=== PATIENT | male | born 1950 | race Caucasian/White ===

== ENCOUNTER 2019-04-27 18:41 | Observation (INO) ==
[2019-04-27 19:20] LABS: ABG Base Excess 2 mEq/L (-2 to 3); ABG HCO3 26 mEq/L (21-27); ABG Oxygen Saturation 97 % (95-98); ABG PCO2 38 mmHg (35-45); ABG PH 7.44 pH Units (7.32-7.45); ABG PO2 86 mmHg (85-104); ABG TCO2 27 mEq/L (20-26)
[2019-04-27 19:47] LABS: Basophils # 0.1 K/mcL (0.0-0.2); Basophils % 0.5 %; Eosinophils # 0.1 K/mcL (0.0-0.6); Eosinophils % 0.7 %; Hematocrit 29.3 % (37.5-50.1); Hemoglobin 9.9 g/dL (12.9-16.9); Immature Granulocytes % 0.5 % (0-4); Lymphocytes # 0.7 K/mcL (0.6-4.6); Lymphocytes % 6.2 %; Mean Corpuscular HGB Conc 33.8 g/dL (31.6-35.5); Mean Corpuscular Hemoglobin 31.3 pg (28.0-33.3); Mean Corpuscular Volume 92.7 fL (83.0-100.0); Mean Platelet Volume 10.2 fL (9.4-12.4); Monocytes # 0.4 K/mcL (0.0-1.3); Monocytes % 3.5 %; Neutrophils # 9.8 K/mcL (1.6-8.9); Platelet Count 209 K/mcL (140-400); Red Blood Count 3.16 M/mcL (4.19-5.50); Red Cell Distribution Width 13.5 % (11.5-14.5); Segmented Neutrophils % 88.6 %; White Blood Count 11.1 K/mcL (4.3-11.1)
[2019-04-27] MEDS ORDERED: Isovue-370 500 ML BOTTLE IVP ONE ×2 (19:53→20:11)
[2019-04-27 20:07] LABS: Albumin 3.6 g/dL (3.5-5.7); Albumin/Globulin Ratio 0.8 (1.1-2.2); Bilirubin,Direct 0.1 mg/dL (0.0-0.2); Bilirubin,Indirect 0.3 mg/dL (0.0-1.0); Bilirubin,Total 0.4 mg/dL (0.3-1.0); Calcium 9.1 mg/dL (8.6-10.3); Globulin 4.3 g/dL (2.4-3.5); Potassium 4.6 mEq/L (3.5-5.1); Total Protein 7.9 g/dL (6.4-8.9)
[2019-04-27 20:10] LABS: Troponin I 0.07 ng/mL (< 0.04)
[2019-04-27] MEDS ORDERED: Aspirin 325 MG TABLET PO ONE (21:01)
[2019-04-27 21:55] LABS: Prothrombin Time 11.6 Seconds (9.4-12.1)
[2019-04-27 21:58] LABS: Activated Partial Thrombo Time 34.7 Seconds (26.0-36.0)
[2019-04-27] MEDS ORDERED: Nicotine 2 MG GUM BC PRN (22:23)
[2019-04-27] MEDS ORDERED: D5% in Water 1,000 ML IVC PRN (22:23)
[2019-04-27] MEDS ORDERED: Ondansetron ODT 4 MG TAB.RAPDIS SL PRN (22:23)
[2019-04-27] MEDS ORDERED: Dextrose Gel 15 GM/37.5 ML TUBE PO PRN ×2 (22:23)
[2019-04-27] MEDS ORDERED: *HR* Dextrose 50 % in Water (Syg) 50 ML SYRINGE IVP PRN (22:23)
[2019-04-27] MEDS ORDERED: Naloxone 0.4 MG/ML INJ IVP PRN (22:23)
[2019-04-27] MEDS: cloNIDine HCl 0.1 MG TABLET PO SCH (22:40)
[2019-04-28 02:56] LABS: Basophils % 0.6 %; Eosinophils % 0.4 %; Hematocrit 26.1 % (37.5-50.1); Hemoglobin 8.6 g/dL (12.9-16.9); Immature Granulocytes % 0.4 % (0-4); Lymphocytes % 13.9 %; Mean Corpuscular Hemoglobin 30.8 pg (28.0-33.3); Mean Corpuscular Volume 93.5 fL (83.0-100.0); Mean Platelet Volume 10.4 fL (9.4-12.4); Monocytes # 0.4 K/mcL (0.0-1.3); Monocytes % 5.8 %; Neutrophils # 5.7 K/mcL (1.6-8.9); Platelet Count 181 K/mcL (140-400); Red Blood Count 2.79 M/mcL (4.19-5.50); Red Cell Distribution Width 13.5 % (11.5-14.5); Segmented Neutrophils % 78.9 %; White Blood Count 7.2 K/mcL (4.3-11.1)
[2019-04-28 02:58] LABS: Estimated Average Glucose 97 mg/dl
[2019-04-28 03:08] LABS: INR 1.1; Prothrombin Time 12.4 Seconds (9.4-12.1)
[2019-04-28 03:17] LABS: Albumin 3.2 g/dL (3.5-5.7); Albumin/Globulin Ratio 0.9 (1.1-2.2); Bilirubin,Total 0.3 mg/dL (0.3-1.0); Calcium 8.6 mg/dL (8.6-10.3); Chol/HDL Ratio 4.2 (0-4.9); Globulin 3.7 g/dL (2.4-3.5); Magnesium 2.1 mg/dL (1.6-2.6); Phosphorous 7.6 mg/dL (2.7-4.5); Potassium 5.2 mEq/L (3.5-5.1); Total Protein 6.9 g/dL (6.4-8.9)
[2019-04-28 03:27] LABS: Thyroid Stimulating Hormone 2.216 mcIU/mL (0.340-5.600)
[2019-04-28] MEDS: *HR* Labetalol 20 MG/4 ML SYRINGE IVP PRN ×2 (03:38→05:03)
[2019-04-28] MEDS: *HR* Heparin 5,000 UNIT/ML VIAL SQ SCH ×3 (06:02→22:24)
[2019-04-28] MEDS ORDERED: Insulin LISPRO 300 UNITS/3 ML VIAL SQ SCH (07:30)
[2019-04-28] MEDS: cloNIDine HCl 0.1 MG TABLET PO SCH ×2 (08:40→19:57)
[2019-04-28] MEDS: amLODIPine 5 MG TABLET PO SCH (08:40)
[2019-04-28] MEDS ORDERED: Nicotine 14 MG PATCH.TD24 TD SCH (09:00)
[2019-04-28] MEDS ORDERED: Furosemide 80 MG in 0.9 % Sodium Chloride 50 ML IVPB ONE (15:25)
[2019-04-28] MEDS ORDERED: Furosemide 80 MG in 0.9 % Sodium Chloride 50 ML IV ONE (15:48)
[2019-04-28 17:18] LABS: Adenovirus Not Detected (Not Detect); Bordetella Pertussis Not Detected (Not Detect); Chlamydophila pneumoniae Not Detected (Not Detect); Coronavirus 229E Not Detected (Not Detect); Coronavirus HKU1 Not Detected (Not Detect); Coronavirus NL63 Not Detected (Not Detect); Coronavirus OC43 Not Detected (Not Detect); Human Metapneumovirus Not Detected (Not Detect); Human Rhinovirus/Enterovirus Not Detected (Not Detect); Influenza A Subtype 2009 H1 Not Detected (Not Detect); Influenza B Not Detected (Not Detect); Mycoplasma pneumoniae Not Detected (Not Detect); Parainfluenza Virus 1 Not Detected (Not Detect); Parainfluenza Virus 2 Not Detected (Not Detect); Parainfluenza Virus 3 Not Detected (Not Detect); Parainfluenza Virus 4 Not Detected (Not Detect); Respiratory Syncytial Virus Not Detected (Not Detect)
[2019-04-28] MEDS: Ipratropium/Albuterol Neb 3 ML IH SCH ×3 (19:36→23:18)
[2019-04-28] MEDS: Budesonide/Formoterol 160/4.5 1 PUFF INH IH SCH (20:10)
[2019-04-29] MEDS: Ipratropium/Albuterol Neb 3 ML IH SCH ×4 (03:31→16:13)
[2019-04-29 05:37] LABS: Basophils # 0.1 K/mcL (0.0-0.2); Basophils % 0.8 %; Eosinophils # 0.2 K/mcL (0.0-0.6); Eosinophils % 3.5 %; Hematocrit 24.1 % (37.5-50.1); Hemoglobin 7.8 g/dL (12.9-16.9); Immature Granulocytes % 0.3 % (0-4); Lymphocytes # 1.4 K/mcL (0.6-4.6); Lymphocytes % 20.9 %; Mean Corpuscular HGB Conc 32.4 g/dL (31.6-35.5); Mean Corpuscular Hemoglobin 30.7 pg (28.0-33.3); Mean Corpuscular Volume 94.9 fL (83.0-100.0); Mean Platelet Volume 10.3 fL (9.4-12.4); Monocytes # 0.5 K/mcL (0.0-1.3); Monocytes % 6.9 %; Neutrophils # 4.4 K/mcL (1.6-8.9); Nucleated Red Blood Cells 0.3 /100 WBC (0); Platelet Count 175 K/mcL (140-400); Red Blood Count 2.54 M/mcL (4.19-5.50); Red Cell Distribution Width 13.9 % (11.5-14.5); Segmented Neutrophils % 67.6 %; White Blood Count 6.5 K/mcL (4.3-11.1)
[2019-04-29] MEDS: *HR* Heparin 5,000 UNIT/ML VIAL SQ SCH ×2 (05:44→13:51)
[2019-04-29 05:51] LABS: % Iron Saturation 52 % (20-55); Calcium 8.1 mg/dL (8.6-10.3); Iron 125 mcg/dL (65-175); Potassium 4.5 mEq/L (3.5-5.1); Transferrin 171 mg/dL (203-362)
[2019-04-29 06:19] LABS: Ferritin 995 ng/mL (20-250)
[2019-04-29 06:25] LABS: Folate 6.5 ng/mL (3.0-16.0)
[2019-04-29] MEDS ORDERED: 0.9 % Sodium Chloride 250 ML IVC PRN (07:57)
[2019-04-29] MEDS ORDERED: *HR* Heparin 10,000 UNIT/10 ML VIAL IV PRN ×2 (07:57)
[2019-04-29] MEDS ORDERED: 0.9 % Sodium Chloride 1,000 ML PRIME SCH (08:00)
[2019-04-29] MEDS ORDERED: Nicotine 21 MG PATCH.TD24 TD SCH (09:00)
[2019-04-29 09:38] LABS: Hepatitis B Surface Antibody 13.71 mIU/mL
[2019-04-29 09:49] LABS: Hepatitis B Surface Antigen Nonreactive (Nonreactive)
[2019-04-29] MEDS: Budesonide/Formoterol 160/4.5 1 PUFF INH IH SCH (11:38)
[2019-04-29] MEDS: cloNIDine HCl 0.1 MG TABLET PO SCH (13:50)
[2019-04-29] MEDS: amLODIPine 5 MG TABLET PO SCH (13:51)
[2019-04-29 15:38] VITALS: BP 127/62
== END 2019-04-29 18:00 | disposition home or self-care (01) ==
LOC: EMEROOARM 18:41 → 2ANU 18:41 → SUATTDRO 21:17 → 2ANU 21:56
PROVIDERS: ADMIT Family Medicine; ATTEND Internal Medicine

== ENCOUNTER 2019-12-09 19:43 | Inpatient (IN) ==
[2019-12-09] MEDS ORDERED: Naloxone 0.4 MG/ML INJ IVP PRN (22:05)
[2019-12-09] MEDS ORDERED: Ondansetron 4 MG/2 ML VIAL IVP PRN (22:05)
[2019-12-09] MEDS ORDERED: *HR* Labetalol 20 MG/4 ML SYRINGE IVP ONE (23:23)
[2019-12-09] MEDS ORDERED: Azithromycin 500 MG in 0.9 % Sodium Chloride 250 ML IVPB SCH (23:45)
[2019-12-09] MEDS ORDERED: Ipratropium/Albuterol Neb 3 ML IH PRN (23:47)
[2019-12-09] MEDS ORDERED: Furosemide 40 MG/4 ML VIAL IVP ONE (23:47)
[2019-12-09] MEDS ORDERED: cefTRIAXone 1,000 MG in Water for inj. (sterile) 10 ML IVP ONE (23:47)
[2019-12-10] MEDS: Ipratropium/Albuterol Neb 3 ML IH SCH ×7 (00:17→23:39)
[2019-12-10] MEDS: MethylPREDNISolone 40 MG/ML VIAL IVP SCH ×4 (00:23→23:31)
[2019-12-10 03:37] LABS: Basophils % 0.7 %; Eosinophils % 0.7 %; Hematocrit 31.1 % (37.5-50.1); Hemoglobin 10.4 g/dL (12.9-16.9); Immature Granulocytes % 0.3 % (0-4); Lymphocytes # 0.4 K/mcL (0.6-4.6); Lymphocytes % 7.2 %; Mean Corpuscular HGB Conc 33.4 g/dL (31.6-35.5); Mean Corpuscular Volume 95.7 fL (83.0-100.0); Mean Platelet Volume 11.2 fL (9.4-12.4); Monocytes # 0.1 K/mcL (0.0-1.3); Monocytes % 2.1 %; Neutrophils # 5.4 K/mcL (1.6-8.9); Platelet Count 153 K/mcL (140-400); Red Blood Count 3.25 M/mcL (4.19-5.50); Red Cell Distribution Width 14.4 % (11.5-14.5); White Blood Count 6.1 K/mcL (4.3-11.1)
[2019-12-10 03:39] LABS: INR 1.1; Prothrombin Time 12.1 Seconds (9.4-12.1)
[2019-12-10 03:52] LABS: Albumin 3.9 g/dL (3.5-5.7); Albumin/Globulin Ratio 1.2 (1.1-2.2); Bilirubin,Total 0.4 mg/dL (0.3-1.0); Calcium 8.9 mg/dL (8.6-10.3); Chol/HDL Ratio 3.9 (0-4.9); Globulin 3.2 g/dL (2.4-3.5); Magnesium 1.8 mg/dL (1.6-2.6); Phosphorous 4.6 mg/dL (2.7-4.5); Potassium 4.1 mEq/L (3.5-5.1); Total Protein 7.1 g/dL (6.4-8.9)
[2019-12-10] MEDS ORDERED: 0.9 % Sodium Chloride 250 ML IVC PRN (07:24)
[2019-12-10] MEDS ORDERED: 0.9 % Sodium Chloride 1,000 ML ONE (07:30)
[2019-12-10] MEDS ORDERED: 0.9 % Sodium Chloride 1,000 ML PRIME SCH (07:30)
[2019-12-10 09:19] LABS: Hepatitis B Surface Antibody 12.28 mIU/mL
[2019-12-10 09:29] LABS: Hepatitis B Surface Antigen Nonreactive (Nonreactive)
[2019-12-10] MEDS ORDERED: Menthol 9.1 MG LOZENGE PO PRN (10:51)
[2019-12-10] MEDS: amLODIPine 5 MG TABLET PO SCH (10:52)
[2019-12-10] MEDS: cloNIDine HCL 0.1 MG TABLET PO SCH ×2 (10:52→20:16)
[2019-12-10] MEDS: lisinopriL 5 MG TABLET PO SCH ×2 (10:52→20:16)
[2019-12-10] MEDS: Nicotine 21 MG PATCH.TD24 TD SCH (10:53)
[2019-12-10] MEDS ORDERED: *HR* Heparin 10,000 UNIT/10 ML VIAL IV PRN (11:30)
[2019-12-10] MEDS: cefTRIAXone 1,000 MG in Water for inj. (sterile) 10 ML IVP SCH (12:07)
[2019-12-10] MEDS: Azithromycin 250 MG TABLET PO SCH (20:16)
[2019-12-10] MEDS: *HR* Heparin 5,000 UNIT/ML VIAL SQ SCH (20:16)
[2019-12-11 01:41] LABS: Hematocrit 28.1 % (37.5-50.1); Hemoglobin 9.2 g/dL (12.9-16.9); Immature Granulocytes % 0.3 % (0-4); Lymphocytes # 0.2 K/mcL (0.6-4.6); Lymphocytes % 5.5 %; Mean Corpuscular HGB Conc 32.7 g/dL (31.6-35.5); Mean Corpuscular Hemoglobin 31.2 pg (28.0-33.3); Mean Corpuscular Volume 95.3 fL (83.0-100.0); Mean Platelet Volume 11.2 fL (9.4-12.4); Monocytes # 0.1 K/mcL (0.0-1.3); Monocytes % 3.1 %; Neutrophils # 3.5 K/mcL (1.6-8.9); Platelet Count 142 K/mcL (140-400); Red Blood Count 2.95 M/mcL (4.19-5.50); Red Cell Distribution Width 14.2 % (11.5-14.5); Segmented Neutrophils % 91.1 %; White Blood Count 3.8 K/mcL (4.3-11.1)
[2019-12-11 01:57] LABS: Calcium 8.6 mg/dL (8.6-10.3); Potassium 4.2 mEq/L (3.5-5.1)
[2019-12-11] MEDS: Ipratropium/Albuterol Neb 3 ML IH SCH ×5 (04:02→20:08)
[2019-12-11] MEDS: *HR* Heparin 5,000 UNIT/ML VIAL SQ SCH ×3 (05:41→21:08)
[2019-12-11] MEDS ORDERED: 0.9 % Sodium Chloride 250 ML IVC PRN (07:15)
[2019-12-11] MEDS: MethylPREDNISolone 40 MG/ML VIAL IVP SCH (08:35)
[2019-12-11] MEDS: Nicotine 21 MG PATCH.TD24 TD SCH (08:35)
[2019-12-11] MEDS: cefTRIAXone 1,000 MG in Water for inj. (sterile) 10 ML IVP SCH (08:35)
[2019-12-11] MEDS ORDERED: *HR* Heparin 10,000 UNIT/10 ML VIAL IV PRN (11:00)
[2019-12-11] MEDS: amLODIPine 5 MG TABLET PO SCH (12:52)
[2019-12-11] MEDS: lisinopriL 5 MG TABLET PO SCH ×2 (12:52→21:07)
[2019-12-11] MEDS: cloNIDine HCL 0.1 MG TABLET PO SCH ×2 (12:52→21:07)
[2019-12-11] MEDS: Azithromycin 250 MG TABLET PO SCH (21:08)
[2019-12-12] MEDS: Ipratropium/Albuterol Neb 3 ML IH SCH ×4 (00:04→11:24)
[2019-12-12 02:31] LABS: Basophils % 0.2 %; Hematocrit 28.4 % (37.5-50.1); Immature Granulocytes % 0.3 % (0-4); Lymphocytes # 0.9 K/mcL (0.6-4.6); Lymphocytes % 14.5 %; Mean Corpuscular HGB Conc 31.7 g/dL (31.6-35.5); Mean Corpuscular Hemoglobin 30.4 pg (28.0-33.3); Mean Corpuscular Volume 95.9 fL (83.0-100.0); Mean Platelet Volume 11.2 fL (9.4-12.4); Monocytes # 0.4 K/mcL (0.0-1.3); Monocytes % 7.1 %; Platelet Count 154 K/mcL (140-400); Red Blood Count 2.96 M/mcL (4.19-5.50); Red Cell Distribution Width 14.3 % (11.5-14.5); Segmented Neutrophils % 77.9 %
[2019-12-12 02:33] LABS: Neutrophils # 4.8 K/mcL (1.6-8.9); White Blood Count 6.1 K/mcL (4.3-11.1)
[2019-12-12 02:49] LABS: Calcium 8.7 mg/dL (8.6-10.3); Magnesium 1.8 mg/dL (1.6-2.6); Phosphorous 3.9 mg/dL (2.7-4.5); Potassium 4.1 mEq/L (3.5-5.1)
[2019-12-12] MEDS: *HR* Heparin 5,000 UNIT/ML VIAL SQ SCH (05:24)
[2019-12-12 08:04] VITALS: BP 116/57
[2019-12-12] MEDS ORDERED: predniSONE 20 MG TABLET PO SCH (09:00)
[2019-12-12] MEDS: cloNIDine HCL 0.1 MG TABLET PO SCH (09:09)
[2019-12-12] MEDS: lisinopriL 5 MG TABLET PO SCH (09:09)
[2019-12-12] MEDS: Nicotine 21 MG PATCH.TD24 TD SCH (09:09)
[2019-12-12] MEDS: amLODIPine 5 MG TABLET PO SCH (09:09)
[2019-12-12] MEDS: cefTRIAXone 1,000 MG in Water for inj. (sterile) 10 ML IVP SCH (09:10)
== END 2019-12-12 12:40 | disposition home health service (06) | DRG 291 ==
LOC: 2ANU → SUATTDRO 12-10 18:24
PROVIDERS: ADMIT Internal Medicine; ATTEND Pharmacist

== ENCOUNTER 2019-12-17 00:21 | Observation (INO) ==
[2019-12-17] MEDS ORDERED: Naloxone 0.4 MG/ML INJ IVP PRN (05:53)
[2019-12-17] MEDS ORDERED: Acetaminophen 325 MG TABLET PO PRN (06:00)
[2019-12-17] MEDS ORDERED: Ipratropium/Albuterol Neb 3 ML IH PRN (06:01)
[2019-12-17] MEDS ORDERED: Ondansetron 4 MG/2 ML VIAL IVP PRN (06:03)
[2019-12-17] MEDS ORDERED: Furosemide 20 MG/2 ML VIAL IVP ONE (06:07)
[2019-12-17 07:02] LABS: Basophils # 0.1 K/mcL (0.0-0.2); Basophils % 0.6 %; Eosinophils # 0.4 K/mcL (0.0-0.6); Eosinophils % 4.3 %; Hematocrit 34.4 % (37.5-50.1); Hemoglobin 11.4 g/dL (12.9-16.9); Immature Granulocytes % 0.5 % (0-4); Lymphocytes # 1.5 K/mcL (0.6-4.6); Lymphocytes % 18.2 %; Mean Corpuscular HGB Conc 33.1 g/dL (31.6-35.5); Mean Corpuscular Hemoglobin 31.5 pg (28.0-33.3); Mean Platelet Volume 10.7 fL (9.4-12.4); Monocytes # 0.6 K/mcL (0.0-1.3); Monocytes % 7.5 %; Neutrophils # 5.7 K/mcL (1.6-8.9); Platelet Count 179 K/mcL (140-400); Red Blood Count 3.62 M/mcL (4.19-5.50); Red Cell Distribution Width 14.2 % (11.5-14.5); Segmented Neutrophils % 68.9 %; White Blood Count 8.2 K/mcL (4.3-11.1)
[2019-12-17 07:32] LABS: Calcium 8.1 mg/dL (8.6-10.3); Potassium 4.1 mEq/L (3.5-5.1)
[2019-12-17] MEDS: *HR* Heparin 5,000 UNIT/ML VIAL SQ SCH ×2 (08:40→18:02)
[2019-12-17] MEDS ORDERED: cloNIDine HCL 0.1 MG TABLET PO ONE (14:12)
[2019-12-18 04:33] LABS: Hematocrit 32.8 % (37.5-50.1); Hemoglobin 10.8 g/dL (12.9-16.9); Mean Corpuscular HGB Conc 32.9 g/dL (31.6-35.5); Mean Corpuscular Hemoglobin 31.4 pg (28.0-33.3); Mean Corpuscular Volume 95.3 fL (83.0-100.0); Mean Platelet Volume 11.1 fL (9.4-12.4); Platelet Count 190 K/mcL (140-400); Red Blood Count 3.44 M/mcL (4.19-5.50); Red Cell Distribution Width 14.2 % (11.5-14.5); White Blood Count 8.7 K/mcL (4.3-11.1)
[2019-12-18 04:53] LABS: Albumin 3.5 g/dL (3.5-5.7); Magnesium 1.8 mg/dL (1.6-2.6); Phosphorous 5.4 mg/dL (2.7-4.5); Potassium 4.4 mEq/L (3.5-5.1)
[2019-12-18] MEDS: *HR* Heparin 5,000 UNIT/ML VIAL SQ SCH ×2 (05:09→17:59)
[2019-12-18] MEDS ORDERED: *HR* Heparin 10,000 UNIT/10 ML VIAL IV PRN ×2 (07:33)
[2019-12-18] MEDS ORDERED: 0.9 % Sodium Chloride 250 ML IVC PRN (07:33)
[2019-12-18] MEDS ORDERED: 0.9 % Sodium Chloride 1,000 ML PRIME SCH (07:45)
[2019-12-18] MEDS ORDERED: *HR* Heparin 10,000 UNIT/10 ML VIAL ONE (13:30)
[2019-12-18] MEDS: lisinopriL 20 MG TABLET PO SCH (14:23)
[2019-12-18] MEDS ORDERED: amLODIPine 5 MG TABLET PO SCH (18:00)
[2019-12-18] MEDS: cloNIDine HCL 0.1 MG TABLET PO SCH (20:27)
[2019-12-19] MEDS: *HR* Heparin 5,000 UNIT/ML VIAL SQ SCH (05:37)
[2019-12-19 09:11] LABS: Hematocrit 31.6 % (37.5-50.1); Hemoglobin 10.7 g/dL (12.9-16.9); Mean Corpuscular HGB Conc 33.9 g/dL (31.6-35.5); Mean Corpuscular Hemoglobin 32.2 pg (28.0-33.3); Mean Corpuscular Volume 95.2 fL (83.0-100.0); Platelet Count 171 K/mcL (140-400); Red Blood Count 3.32 M/mcL (4.19-5.50); Red Cell Distribution Width 13.9 % (11.5-14.5); White Blood Count 6.5 K/mcL (4.3-11.1)
[2019-12-19 09:31] LABS: Calcium 8.4 mg/dL (8.6-10.3); Potassium 4.2 mEq/L (3.5-5.1)
[2019-12-19] MEDS: cloNIDine HCL 0.1 MG TABLET PO SCH (10:36)
[2019-12-19] MEDS: lisinopriL 20 MG TABLET PO SCH (10:36)
[2019-12-19] MEDS ORDERED: cloNIDine HCL 0.1 MG TABLET PO ONE (12:50)
[2019-12-19 15:15] VITALS: BP 139/79
== END 2019-12-19 17:42 | disposition home or self-care (01) ==
LOC: EMEROOARM 00:21 → CDU 00:21 → SUATTDRO 05:33 → CDU 08:10
PROVIDERS: ADMIT Student in an Organized Health Care Education/Training Program; ATTEND Internal Medicine

== ENCOUNTER 2020-08-31 10:06 | Inpatient (IN) ==
[2020-08-31 12:03] LABS: Basophils # 0.1 K/mcL (0.0-0.2); Basophils % 0.8 %; Eosinophils # 0.4 K/mcL (0.0-0.6); Eosinophils % 5.3 %; Hematocrit 28.5 % (37.5-50.1); Hemoglobin 9.6 g/dL (12.9-16.9); Immature Granulocytes % 0.1 % (0-4); Lymphocytes # 1.7 K/mcL (0.6-4.6); Lymphocytes % 20.9 %; Mean Corpuscular HGB Conc 33.7 g/dL (31.6-35.5); Mean Corpuscular Hemoglobin 31.1 pg (28.0-33.3); Mean Corpuscular Volume 92.2 fL (83.0-100.0); Mean Platelet Volume 10.5 fL (9.4-12.4); Monocytes # 0.4 K/mcL (0.0-1.3); Monocytes % 4.4 %; Neutrophils # 5.5 K/mcL (1.6-8.9); Platelet Count 169 K/mcL (140-400); Red Blood Count 3.09 M/mcL (4.19-5.50); Segmented Neutrophils % 68.5 %
[2020-08-31 12:27] LABS: Calcium 8.4 mg/dL (8.6-10.3); Potassium 4.3 mEq/L (3.5-5.1)
[2020-08-31 12:34] LABS: Troponin I 0.04 ng/mL (< 0.04)
[2020-08-31] MEDS ORDERED: Melatonin 3 MG TABLET PO PRN (14:12)
[2020-08-31] MEDS ORDERED: Mag Hydrox/Al Hydrox/Simeth 30 ML UDC PO PRN (14:12)
[2020-08-31] MEDS ORDERED: Ondansetron ODT 4 MG TAB.RAPDIS SL PRN (14:12)
[2020-08-31] MEDS ORDERED: Naloxone 0.4 MG/ML INJ IVP PRN (14:12)
[2020-08-31] MEDS: amLODIPine 5 MG TABLET PO SCH (16:05)
[2020-08-31] MEDS ORDERED: *HR* Heparin 5,000 UNIT/ML VIAL SQ SCH (18:00)
[2020-09-01 02:26] LABS: Basophils # 0.1 K/mcL (0.0-0.2); Basophils % 0.8 %; Eosinophils # 0.6 K/mcL (0.0-0.6); Eosinophils % 7.6 %; Hematocrit 27.7 % (37.5-50.1); Hemoglobin 9.3 g/dL (12.9-16.9); Immature Granulocytes % 0.4 % (0-4); Lymphocytes # 2.2 K/mcL (0.6-4.6); Lymphocytes % 27.9 %; Mean Corpuscular HGB Conc 33.6 g/dL (31.6-35.5); Mean Corpuscular Hemoglobin 30.7 pg (28.0-33.3); Mean Corpuscular Volume 91.4 fL (83.0-100.0); Mean Platelet Volume 10.6 fL (9.4-12.4); Monocytes # 0.5 K/mcL (0.0-1.3); Monocytes % 5.9 %; Neutrophils # 4.6 K/mcL (1.6-8.9); Platelet Count 172 K/mcL (140-400); Red Blood Count 3.03 M/mcL (4.19-5.50); Segmented Neutrophils % 57.4 %
[2020-09-01 02:43] LABS: Calcium 8.2 mg/dL (8.6-10.3); Potassium 4.5 mEq/L (3.5-5.1)
[2020-09-01] MEDS ORDERED: 0.9 % Sodium Chloride 250 ML IVC PRN (06:37)
[2020-09-01] MEDS ORDERED: 0.9 % Sodium Chloride 1,000 ML PRIME SCH (06:45)
[2020-09-01] MEDS: amLODIPine 5 MG TABLET PO SCH (09:03)
[2020-09-01] MEDS ORDERED: Lidocaine/EPI 1:100k 1% 50 ML VIAL ONE (09:34)
[2020-09-01] MEDS ORDERED: Heparin 1,000 UNITS/500 mL 500 ML ONE (09:34)
[2020-09-01] MEDS ORDERED: *HR* FentaNYL (PF) 100 MCG/2 ML VIAL IVP ONE (09:41)
[2020-09-01] MEDS ORDERED: 0.9 % Sodium Chloride 500 ML ONE (09:49)
[2020-09-01] MEDS ORDERED: *HR* Midazolam HCl 2 MG/2 ML VIAL IV ONE (10:00)
[2020-09-01] MEDS ORDERED: CeFAZolin 2,000MG/50ML DUPLEX 2,000 MG/50 ML BAG IVPB ONE ×2 (10:00→10:15)
[2020-09-01] MEDS ORDERED: amLODIPine 5 MG TABLET PO ONE (10:03)
[2020-09-01] MEDS ORDERED: *HR* Heparin 5,000 UNIT/ML VIAL ONE ×2 (10:46→10:51)
[2020-09-01] MEDS ORDERED: *HR* Heparin 10,000 UNIT/10 ML VIAL IV PRN (12:08)
[2020-09-02 05:26] LABS: Potassium 4.7 mEq/L (3.5-5.1)
[2020-09-02] MEDS ORDERED: 0.9 % Sodium Chloride 250 ML IVC PRN (07:52)
[2020-09-02] MEDS: amLODIPine 5 MG TABLET PO SCH (08:37)
[2020-09-03 07:07] LABS: Basophils # 0.1 K/mcL (0.0-0.2); Basophils % 0.8 %; Eosinophils # 0.9 K/mcL (0.0-0.6); Eosinophils % 13.7 %; Hematocrit 30.7 % (37.5-50.1); Hemoglobin 10.2 g/dL (12.9-16.9); Immature Granulocytes % 0.2 % (0-4); Immature Platelets 5.9 % (1.1-6.1); Lymphocytes # 0.8 K/mcL (0.6-4.6); Lymphocytes % 12.3 %; Mean Corpuscular HGB Conc 33.2 g/dL (31.6-35.5); Mean Corpuscular Hemoglobin 30.8 pg (28.0-33.3); Mean Corpuscular Volume 92.7 fL (83.0-100.0); Mean Platelet Volume 10.6 fL (9.4-12.4); Monocytes # 0.5 K/mcL (0.0-1.3); Monocytes % 7.2 %; Neutrophils # 4.3 K/mcL (1.6-8.9); Platelet Count 136 K/mcL (140-400); Red Blood Count 3.31 M/mcL (4.19-5.50); Red Cell Distribution Width 12.7 % (11.5-14.5); Segmented Neutrophils % 65.8 %; White Blood Count 6.6 K/mcL (4.3-11.1)
[2020-09-03 07:25] LABS: Calcium 8.9 mg/dL (8.6-10.3)
[2020-09-03] MEDS: amLODIPine 5 MG TABLET PO SCH (07:36)
[2020-09-03] MEDS: Aspirin Enteric Coated 81 MG Tablet PO SCH (09:50)
[2020-09-03] MEDS: hydrALAZINE 25 MG TABLET PO SCH ×3 (09:51→20:39)
[2020-09-04] MEDS ORDERED: 0.9 % Sodium Chloride 250 ML IVC PRN (06:50)
[2020-09-04] MEDS: amLODIPine 5 MG TABLET PO SCH (07:50)
[2020-09-04] MEDS: Aspirin Enteric Coated 81 MG Tablet PO SCH (07:50)
[2020-09-04] MEDS: hydrALAZINE 25 MG TABLET PO SCH ×3 (07:50→21:16)
[2020-09-04 08:36] LABS: Basophils % 0.4 %; Eosinophils # 0.8 K/mcL (0.0-0.6); Eosinophils % 14.5 %; Hematocrit 31.1 % (37.5-50.1); Hemoglobin 10.6 g/dL (12.9-16.9); Immature Granulocytes % 0.5 % (0-4); Lymphocytes # 0.8 K/mcL (0.6-4.6); Lymphocytes % 14.8 %; Mean Corpuscular HGB Conc 34.1 g/dL (31.6-35.5); Mean Corpuscular Hemoglobin 31.2 pg (28.0-33.3); Mean Corpuscular Volume 91.5 fL (83.0-100.0); Mean Platelet Volume 11.3 fL (9.4-12.4); Monocytes # 0.4 K/mcL (0.0-1.3); Monocytes % 7.5 %; Neutrophils # 3.5 K/mcL (1.6-8.9); Platelet Count 128 K/mcL (140-400); Red Cell Distribution Width 12.6 % (11.5-14.5); Segmented Neutrophils % 62.3 %; White Blood Count 5.6 K/mcL (4.3-11.1)
[2020-09-04 08:56] LABS: Magnesium 1.9 mg/dL (1.6-2.6); Phosphorous 5.4 mg/dL (2.7-4.5); Potassium 4.4 mEq/L (3.5-5.1)
[2020-09-05] MEDS: Aspirin Enteric Coated 81 MG Tablet PO SCH (07:40)
[2020-09-05] MEDS: amLODIPine 5 MG TABLET PO SCH (07:40)
[2020-09-05] MEDS: hydrALAZINE 25 MG TABLET PO SCH ×3 (07:40→19:50)
[2020-09-05 08:45] LABS: Basophils # 0.1 K/mcL (0.0-0.2); Basophils % 0.9 %; Eosinophils # 0.6 K/mcL (0.0-0.6); Eosinophils % 10.9 %; Hematocrit 27.5 % (37.5-50.1); Hemoglobin 9.1 g/dL (12.9-16.9); Immature Granulocytes % 0.2 % (0-4); Lymphocytes # 1.2 K/mcL (0.6-4.6); Lymphocytes % 22.1 %; Mean Corpuscular HGB Conc 33.1 g/dL (31.6-35.5); Mean Corpuscular Hemoglobin 30.6 pg (28.0-33.3); Mean Corpuscular Volume 92.6 fL (83.0-100.0); Mean Platelet Volume 11.1 fL (9.4-12.4); Monocytes # 0.5 K/mcL (0.0-1.3); Monocytes % 8.6 %; Neutrophils # 3.2 K/mcL (1.6-8.9); Platelet Count 135 K/mcL (140-400); Red Blood Count 2.97 M/mcL (4.19-5.50); Red Cell Distribution Width 12.6 % (11.5-14.5); Segmented Neutrophils % 57.3 %; White Blood Count 5.6 K/mcL (4.3-11.1)
[2020-09-05 08:58] LABS: Calcium 8.5 mg/dL (8.6-10.3); Potassium 3.9 mEq/L (3.5-5.1)
[2020-09-06 05:27] LABS: Hematocrit 26.1 % (37.5-50.1); Mean Corpuscular HGB Conc 34.5 g/dL (31.6-35.5); Mean Corpuscular Hemoglobin 31.6 pg (28.0-33.3); Mean Corpuscular Volume 91.6 fL (83.0-100.0); Mean Platelet Volume 10.7 fL (9.4-12.4); Platelet Count 136 K/mcL (140-400); Red Blood Count 2.85 M/mcL (4.19-5.50); Red Cell Distribution Width 12.5 % (11.5-14.5); White Blood Count 6.3 K/mcL (4.3-11.1)
[2020-09-06 05:48] LABS: Calcium 8.3 mg/dL (8.6-10.3); Potassium 4.1 mEq/L (3.5-5.1)
[2020-09-06] MEDS: hydrALAZINE 25 MG TABLET PO SCH ×3 (07:34→20:54)
[2020-09-06] MEDS: amLODIPine 5 MG TABLET PO SCH (07:35)
[2020-09-06] MEDS: Aspirin Enteric Coated 81 MG Tablet PO SCH (07:35)
[2020-09-07 06:22] LABS: Calcium 8.6 mg/dL (8.6-10.3); Potassium 4.4 mEq/L (3.5-5.1)
[2020-09-07] MEDS ORDERED: 0.9 % Sodium Chloride 250 ML IVC PRN (08:15)
[2020-09-07] MEDS ORDERED: *HR* Heparin 10,000 UNIT/10 ML VIAL IV PRN ×2 (08:15)
[2020-09-07] MEDS: hydrALAZINE 25 MG TABLET PO SCH ×3 (08:51→21:03)
[2020-09-07] MEDS: amLODIPine 5 MG TABLET PO SCH (13:58)
[2020-09-07] MEDS: Aspirin Enteric Coated 81 MG Tablet PO SCH (13:59)
[2020-09-08 02:20] LABS: Basophils # 0.1 K/mcL (0.0-0.2); Basophils % 0.8 %; Eosinophils # 0.5 K/mcL (0.0-0.6); Eosinophils % 6.8 %; Hematocrit 28.4 % (37.5-50.1); Hemoglobin 9.6 g/dL (12.9-16.9); Immature Granulocytes % 0.3 % (0-4); Lymphocytes % 30.2 %; Mean Corpuscular HGB Conc 33.8 g/dL (31.6-35.5); Mean Corpuscular Hemoglobin 31.3 pg (28.0-33.3); Mean Corpuscular Volume 92.5 fL (83.0-100.0); Mean Platelet Volume 10.7 fL (9.4-12.4); Monocytes # 0.5 K/mcL (0.0-1.3); Monocytes % 7.5 %; Neutrophils # 3.6 K/mcL (1.6-8.9); Platelet Count 152 K/mcL (140-400); Red Blood Count 3.07 M/mcL (4.19-5.50); Red Cell Distribution Width 12.6 % (11.5-14.5); Segmented Neutrophils % 54.4 %; White Blood Count 6.6 K/mcL (4.3-11.1)
[2020-09-08 02:42] LABS: Calcium 8.7 mg/dL (8.6-10.3)
[2020-09-08 02:48] LABS: Platelet Estimate Normal (Normal); Reactive Lymphocytes Present (Not Present)
[2020-09-08] MEDS: Aspirin Enteric Coated 81 MG Tablet PO SCH (07:37)
[2020-09-08] MEDS: hydrALAZINE 25 MG TABLET PO SCH ×3 (07:37→21:26)
[2020-09-08] MEDS: amLODIPine 5 MG TABLET PO SCH (07:37)
[2020-09-09 05:49] LABS: Basophils # 0.1 K/mcL (0.0-0.2); Basophils % 1.1 %; Eosinophils # 0.5 K/mcL (0.0-0.6); Hemoglobin 9.3 g/dL (12.9-16.9); Immature Granulocytes % 0.2 % (0-4); Lymphocytes # 1.7 K/mcL (0.6-4.6); Lymphocytes % 26.8 %; Mean Corpuscular HGB Conc 34.4 g/dL (31.6-35.5); Mean Corpuscular Hemoglobin 31.6 pg (28.0-33.3); Mean Corpuscular Volume 91.8 fL (83.0-100.0); Mean Platelet Volume 10.9 fL (9.4-12.4); Monocytes # 0.5 K/mcL (0.0-1.3); Monocytes % 7.6 %; Neutrophils # 3.7 K/mcL (1.6-8.9); Platelet Count 155 K/mcL (140-400); Red Blood Count 2.94 M/mcL (4.19-5.50); Red Cell Distribution Width 12.5 % (11.5-14.5); Segmented Neutrophils % 57.3 %; White Blood Count 6.4 K/mcL (4.3-11.1)
[2020-09-09 06:07] LABS: Calcium 8.8 mg/dL (8.6-10.3); Potassium 5.1 mEq/L (3.5-5.1)
[2020-09-09] MEDS ORDERED: *HR* Heparin 10,000 UNIT/10 ML VIAL IV PRN ×2 (07:38)
[2020-09-09] MEDS ORDERED: 0.9 % Sodium Chloride 250 ML IVC PRN (07:38)
[2020-09-09] MEDS: Aspirin Enteric Coated 81 MG Tablet PO SCH (07:39)
[2020-09-09] MEDS: hydrALAZINE 25 MG TABLET PO SCH ×3 (10:34→21:52)
[2020-09-09] MEDS: amLODIPine 5 MG TABLET PO SCH (14:12)
[2020-09-09] MEDS: *HR* Heparin 5,000 UNIT/ML VIAL SQ SCH (18:14)
[2020-09-10] MEDS: *HR* Heparin 5,000 UNIT/ML VIAL SQ SCH (05:47)
[2020-09-10 07:44] VITALS: BP 143/70
[2020-09-10] MEDS: hydrALAZINE 25 MG TABLET PO SCH (07:49)
[2020-09-10] MEDS: Aspirin Enteric Coated 81 MG Tablet PO SCH (07:49)
[2020-09-10] MEDS: amLODIPine 5 MG TABLET PO SCH (07:49)
[2020-09-10 08:12] LABS: Basophils # 0.1 K/mcL (0.0-0.2); Basophils % 1.4 %; Eosinophils # 0.2 K/mcL (0.0-0.6); Eosinophils % 3.1 %; Hematocrit 29.3 % (37.5-50.1); Hemoglobin 9.6 g/dL (12.9-16.9); Immature Granulocytes % 0.6 % (0-4); Lymphocytes # 1.3 K/mcL (0.6-4.6); Lymphocytes % 20.1 %; Mean Corpuscular HGB Conc 32.8 g/dL (31.6-35.5); Mean Corpuscular Hemoglobin 30.6 pg (28.0-33.3); Mean Corpuscular Volume 93.3 fL (83.0-100.0); Monocytes # 0.5 K/mcL (0.0-1.3); Monocytes % 8.3 %; Neutrophils # 4.3 K/mcL (1.6-8.9); Platelet Count 181 K/mcL (140-400); Red Blood Count 3.14 M/mcL (4.19-5.50); Red Cell Distribution Width 12.6 % (11.5-14.5); Segmented Neutrophils % 66.5 %; White Blood Count 6.5 K/mcL (4.3-11.1)
[2020-09-10 08:33] LABS: Calcium 9.1 mg/dL (8.6-10.3); Phosphorous 4.6 mg/dL (2.7-4.5); Potassium 4.8 mEq/L (3.5-5.1)
== END 2020-09-10 11:02 | DRG 673 ==
LOC: 2ANU 10:06 → EMEROOARM 10:06 → SUATTDRO 13:57 → 2ANU 15:23 → SUATTDRO 09-02 16:33
PROVIDERS: ADMIT Family Medicine; ATTEND Internal Medicine
PROC: IRPERMA (2020-09-01 12:00)